=== PATIENT | female | born 1945 | race Caucasian/White ===

== ENCOUNTER 2022-01-06 11:04 | Emergency (ER) | payer MEDICARE, OTHER ==
[~2022-01-06] VITALS: Ht 152.4 cm; Wt 111.1 kg
--- NOTE | 2022-01-06 12:02 | NUR ---
DR Davis evaluated the pt.
--- NOTE | 2022-01-06 12:20 | NUR ---
Pt stated she hit her Rt hand very hard to the bar in the bathroom, and fell(?). C/O rt hand pain, Dr Davis made aware.
[2022-01-06 12:28] LABS: HEMATOCRIT 42.6 % (31.2-41.9); MEAN CORPUSCULAR HEMOGLOBIN 26.4 uug (24.7-32.8); MEAN CORPUSCULAR VOLUME 82.2 fL (75.5-95.3); PLATELET COUNT (AUTO) 223 K/uL (179-408)
[2022-01-06 12:32] LABS: *BILIRUBIN,URIN NEGATIVE (NEGATIVE); *BLOOD, URINE 3+ (NEGATIVE); *CLARITY,URINE CLOUDY (CLEAR); *COLOR,URINE AMBER (YELLOW); *KETONES,URINE NEGATIVE (NEGATIVE); *UROBILINOGEN,URINE 0.2 E.U./dl (NORMAL); LEUKOCYTE ESTERASE ,URINE 1+ (NEGATIVE); NITRITE, URINE NEGATIVE (NEGATIVE); UGLUCOSE NEGATIVE (NEGATIVE)
--- NOTE | 2022-01-06 13:00 | NUR ---
Pt back from Ct resting in bed. Pt's daughter at the bedside.
[2022-01-06 13:21] LABS: BACTERIA,URINE FEW /HPF (NONE SEEN); RBC,URINE TNTC /HPF (0-3); SQUAMOUS EPITHELIAL CELL,UR FEW /HPF (NONE SEEN)
[2022-01-06 13:33] LABS: POTASSIUM 4.1 mmol/L (3.5-5.1)
--- NOTE | 2022-01-06 13:56 | NUR ---
Dr Davis spoke to Dr Knowles (OBGYN) for consult.
[2022-01-06] MEDS ORDERED: NITR100C6 PO (13:59)
--- NOTE | 2022-01-06 14:19 | NUR ---
Patient discharged to home in stable condition. Written and verbal after care instructions given. Patient verbalizes understanding of instructions. Stressed follow up or return to ER for worsening s/s.
[2022-01-06 14:21] VITALS: BP 122/65
== END 2022-01-06 14:26 | disposition home or self-care (01) ==
LOC: ER 11:04
DX: N95.0 Postmenopausal bleeding (principal); N39.0 Urinary tract infection, site not specified; E03.9 Hypothyroidism, unspecified; E78.00 Pure hypercholesterolemia, unspecified; M79.641 Pain in right hand; S50.311A Abrasion of right elbow, initial encounter; W01.0XXA Fall on same level from slipping, tripping and stumbling without subsequent striking against object, initial encounter; Y92.89 Other specified places as the place of occurrence of the external cause; I10 Essential (primary) hypertension; I48.91 Unspecified atrial fibrillation
CPT/HCPCS: 36415; 73130; 76856; 85025; 86850; 86900; 86901; 87086; A4663